=== PATIENT | female | born 1935 | race Caucasian/White ===

== ENCOUNTER 2022-12-01 21:27 | Observation (INO) | payer MEDICARE, OTHER ==
[2022-12-01] MEDS ORDERED: SODIUM CHLORIDE 0.9% 1,000 ML IV STA (22:10)
[2022-12-01] MEDS ORDERED: VANCOMYCIN IV PER PHARMACY 1 EACH MISC MISCELLANE PRN (22:13)
[2022-12-01] MEDS ORDERED: VANCOMYCIN 1,000 MG in SODIUM CHLORIDE 0.9% 250 ML IVPB STA (22:19)
--- NOTE | 2022-12-01 22:57 | ED ---
Skin/Abscess/FB HPI - General Chief complaint: Skin/Abscess/Foreign Body Stated complaint: arm infection Time Seen by Provider: 12/01/22 22:00 Source: patient, RN notes reviewed, old records reviewed Mode of arrival: ambulatory Limitations: no limitations - History of Present Illness Initial comments: This is a 87-year-old female to the emergency department for evaluation patient comes in for evaluation of right upper extremity pain and swelling. Patient is noticed cellulitis changes around the right elbow with history of lymphedema in the right upper extremity secondary to history of breast cancer. This is been up issue for the patient in the past with inpatient hospitalizations requiring IV antibiotics. Patient does have history of breast cancer leading to lymphedema of the right upper extremity MD complaint: rash, other (Cellulitis of the right elbow) -: days(s) Tetanus Up to Date: yes Location: RUE Severity: moderate Severity scale (1-10): 4 Quality: stabbing Consistency: constant Improves with: none Worsens with: none Context: none Associated symptoms: denies other symptoms - Related Data Allergies Allergy/AdvReac Type Severity Reaction Status Date / Time codeine Allergy Unknown Verified 12/01/22 21:55 meperidine [From Demerol] Allergy Unknown Verified 12/01/22 21:55 Penicillins Allergy Unknown Verified 12/01/22 21:55 Childhood sulfamethoxazole Allergy Rash/Hives Verified 12/01/22 21:55 [From Bactrim] trimethoprim [From Bactrim] Allergy Rash/Hives Verified 12/01/22 21:55 Review of Systems ROS Statement: Those systems with pertinent positive or pertinent negative responses have been documented in the HPI. ROS Other: All systems not noted in ROS Statement are negative. Past Medical History Past Medical History: Cancer, Hypertension Additional Past Medical History / Comment(s): Breast cancer History of Any Multi-Drug Resistant Organisms: None Reported Past Surgical History: Joint Replacement, Orthopedic Surgery, Pacemaker Past Psychological History: No Psychological Hx Reported Smoking Status: Never smoker Past Alcohol Use History: None Reported Past Drug Use History: None Reported General Exam Limitations: no limitations General appearance: alert, in no apparent distress Head exam: Present: atraumatic, normocephalic, normal inspection Eye exam: Present: normal appearance, PERRL, EOMI. Absent: scleral icterus, conjunctival injection, periorbital swelling ENT exam: Present: normal exam, mucous membranes moist Neck exam: Present: normal inspection. Absent: tenderness, meningismus, l ymphadenopathy Respiratory exam: Present: normal lung sounds bilaterally. Absent: respiratory distress, wheezes, rales, rhonchi, stridor Cardiovascular Exam: Present: regular rate, normal rhythm, normal heart sounds. Absent: systolic murmur, diastolic murmur, rubs, gallop, clicks GI/Abdominal exam: Present: soft, normal bowel sounds. Absent: distended, tenderness, guarding, rebound, rigid Extremities exam: Present: tenderness, normal capillary refill, other (Edema, erythema with pain is still in with right upper extremity around the elbow). Absent: pedal edema, joint swelling, calf tenderness Back exam: Present: normal inspection Neurological exam: Present: alert, oriented X3, CN II-XII intact Psychiatric exam: Present: normal affect, normal mood Skin exam: Present: warm, dry, intact, normal color. Absent: rash Course Vital Signs 12/01/22 12/01/22 21:52 23:54 Temperature 97.9 F Pulse Rate 76 73 Respiratory 18 18 Rate Blood Pressure 162/86 176/96 O2 Sat by Pulse 96 96 Oximetry - Reevaluation(s) Reevaluation #1: 12/02/22 01:01 Medical records reviewed Reevaluation #2: 12/02/22 01:01 No change in symptoms here in the ER Reevaluation #3: 12/02/22 01:01 Patient informed results questions answered Reevaluation #4: 12/02/22 01:01 Was pt. sent in by a medical professional or institution (, PA, HOLISTIC PULSER, urgent care, hospital, or care home...) When possible be specific @ -no Did you speak to anyone other than the patient for history (EMS, parent, family, police, friend...)? What history was obtained from this source @ -no Did you review nursing and triage notes (agree or disagree)? Why? @ -agree Are old charts reviewed (outside hosp., previous admission, EMS record, old EKG, old radiological studies, urgent care reports/EKG's, care home records)? Report findings @ -yes Differential Diagnosis (chest pain, altered mental status, abdominal pain women, abdominal pain men, vaginal bleeding, weakness, fever, dyspnea, syncope, headache, dizziness, GI bleed, back pain, seizure, CVA, palpatations, mental health, musculoskeletal)? @ -prior EKG interpreted by me (3pts min.). @ -yes X-rays interpreted by me (1pt min.). @ -yes CT interpreted by me (1pt min.). @ -no U/S interpreted by me (1pt. min.). @ -no What testing was considered but not performed or refused? (CT, X-rays, U/S, labs)? Why? @ -none What meds were considered but not given or refused? Why? @ -none Did you discuss the management of the patient with other professionals (professionals i.e. Dr., PA, HOLISTIC PULSER, lab, RT, psych nurse, social problems specialist, dinkey operator, teacher, chief commercial officer, hospice case manager)? Give summary @ -no Was smoking cessation discussed for >3mins.? @ -no Was critical care preformed (if so, how long)? @ -no Were there social determinants of health that impacted care today? How? (Homelessness, low income, unemployed, alcoholism, drug addiction, transportation, low edu. Level, literacy, decrease access to med. care, fci, rehab)? @ -none Was there de-escalation of care discussed even if they declined (Discuss DNR or withdrawal of care, Hospice)? DNR status @ -no What co-morbidities impacted this encounter? (DM, HTN, Smoking, COPD, CAD, Cancer, CVA, ARF, Chemo, Hep., AIDS, mental health diagnosis, sleep apnea, morbid obesity)? @ -none Was patient admitted / discharged? Hospital course, mention meds given and route, prescriptions, significant lab abnormalities, going to OR and other pertinent info. @ - Undiagnosed new problem with uncertain prognosis? @ -no Drug Therapy requiring intensive monitoring for toxicity (Heparin, Nitro, Insulin, Cardizem)? @ -no Were any procedures done? @ -no Diagnosis/symptom? @ - Acute, or Chronic, or Acute on Chronic? @ -Acute Uncomplicated (without systemic symptoms) or Complicated (systemic symptoms)? @ -Complicated Side effects of treatment? @ -no Exacerbation, Progression, or Severe Exacerbation? @ -exacerbation Poses a threat to life or bodily function? How? (Chest pain, [place], [place], pneumonia, PE, COPD, DKA, ARF, appy, cholecystitis, CVA, Diverticulitis, Homicidal, Suicidal, threat to staff... and all critical care pts) @ -yes - Consultations Consultation #1: Franklyn with jackie who agrees to admit this patient Medical Decision Making - Medical Decision Making 87 female DF for evaluation of recurrent cellulitis right upper extremity. Patient has significant swelling and pain of the right upper extremity with history of severe cellulitis this patient will be admitted for IV antibiotics - Lab Data Result diagrams: 12/01/22 23:25 12/01/22 23:25 Lab Results 12/01/22 12/01/22 12/01/22 Range/Units 23:25 23:25 23:25 WBC 7.7 (3.8-10.6) k/uL RBC 3.77 L (3.80-5.40) m/uL Hgb 11.3 L (11.4-16.0) gm/dL Hct 33.7 L (34.0-46.0) % MCV 89.4 (80.0-100.0) fL MCH 30.0 (25.0-35.0) pg MCHC 33.6 (31.0-37.0) g/dL RDW 13.7 (11.5-15.5) % Plt Count 288 (150-450) k/uL MPV 6.9 Neutrophils % 65 % Lymphocytes % 24 % Monocytes % 7 % Eosinophils % 2 % Basophils % 1 % Neutrophils # 5.0 (1.3-7.7) k/uL Lymphocytes # 1.9 (1.0-4.8) k/uL Monocytes # 0.5 (0-1.0) k/uL Eosinophils # 0.1 (0-0.7) k/uL Basophils # 0.0 (0-0.2) k/uL PT 10.4 (9.0-12.0) sec INR 1.0 (<1.2) APTT 26.9 (22.0-30.0) sec Sodium 129 L (137-145) mmol/L Potassium 4.1 (3.5-5.1) mmol/L Chloride 93 L (98-107) mmol/L Carbon Dioxide 27 (22-30) mmol/L Anion Gap 9 mmol/L BUN 26 H (7-17) mg/dL Creatinine 0.72 (0.52-1.04) mg/dL Est GFR (CKD-EPI)AfAm 87 (>60 ml/min/1.73 sqM) Est GFR (CKD-EPI)NonAf 75 (>60 ml/min/1.73 sqM) Glucose 98 (74-99) mg/dL Calcium 9.2 (8.4-10.2) mg/dL Phosphorus 4.1 (2.5-4.5) mg/dL Magnesium 1.9 (1.6-2.3) mg/dL Total Bilirubin 0.5 (0.2-1.3) mg/dL AST 26 (14-36) U/L ALT 15 (4-34) U/L Alkaline Phosphatase 94 (38-126) U/L Troponin I (0.000-0.034) ng/mL C-Reactive Protein <0.5 (<1.0) mg/dL NT-Pro-B Natriuret Pep 715 pg/mL Total Protein 6.7 (6.3-8.2) g/dL Albumin 3.6 (3.5-5.0) g/dL 12/01/22 Range/Units 23:25 WBC (3.8-10.6) k/uL RBC (3.80-5.40) m/uL Hgb (11.4-16.0) gm/dL Hct (34.0-46.0) % MCV (80.0-100.0) fL MCH (25.0-35.0) pg MCHC (31.0-37.0) g/dL RDW (11.5-15.5) % Plt Count (150-450) k/uL MPV Neutrophils % % Lymphocytes % % Monocytes % % Eosinophils % % Basophils % % Neutrophils # (1.3-7.7) k/uL Lymphocytes # (1.0-4.8) k/uL Monocytes # (0-1.0) k/uL Eosinophils # (0-0.7) k/uL Basophils # (0-0.2) k/uL PT (9.0-12.0) sec INR (<1.2) APTT (22.0-30.0) sec Sodium (137-145) mmol/L Potassium (3.5-5.1) mmol/L Chloride (98-107) mmol/L Carbon Dioxide (22-30) mmol/L Anion Gap mmol/L BUN (7-17) mg/dL Creatinine (0.52-1.04) mg/dL Est GFR (CKD-EPI)AfAm (>60 ml/min/1.73 sqM) Est GFR (CKD-EPI)NonAf (>60 ml/min/1.73 sqM) Glucose (74-99) mg/dL Calcium (8.4-10.2) mg/dL Phosphorus (2.5-4.5) mg/dL Magnesium (1.6-2.3) mg/dL Total Bilirubin (0.2-1.3) mg/dL AST (14-36) U/L ALT (4-34) U/L Alkaline Phosphatase (38-126) U/L Troponin I <0.012 (0.000-0.034) ng/mL C-Reactive Protein (<1.0) mg/dL NT-Pro-B Natriuret Pep pg/mL Total Protein (6.3-8.2) g/dL Albumin (3.5-5.0) g/dL - EKG Data -: EKG Interpreted by Me (EKG is paced 74 ND 250 QRS 90 QTC 412) - Radiology Data Radiology results: report reviewed (Chest x-ray shows pulmonary edema, ultrasound negative for DVT), image reviewed Disposition Clinical Impression: Cellulitis of right forearm Disposition: ADMITTED IP TO THIS HOSP Condition: Good Is patient prescribed a controlled substance at d/c from ED?: No Referrals: Chon Cotter MD [Primary Care Provider] - 1-2 days Time of Disposition: 01:00
[2022-12-01] MEDS ORDERED: ONDANSETRON 4 MG/2 ML VIAL IVP STA (23:47)
--- NOTE | 2022-12-01 23:51 | US ---
EXAMINATION TYPE: US venous doppler duplex UE RT DATE OF EXAM: 12/01/2022 COMPARISON: NONE CLINICAL INDICATION: Female, 87 years old with history of DVT; Lymph node resection to right axilla 2 0+ yrs ago due to Breast CA, lymphedema ever since with episodes of cellulitis, arm is starting to ge t pink in color, had dvt in leg years ago, not on thinners SIDE PERFORMED: Right Right Arm: Negative for DVT Grayscale, color doppler, spectral doppler imaging performed of the deep veins of the upper extremiti es. There is normal flow, compressibility and vascular waveforms. *unable to visualize Basilic v throughout study due to extensive swelling in medial arm* IMPRESSION: 1. No evidence for deep vein thrombosis. 2. Unable to visualize the basilic vein due to extensive soft tissue swelling.
[2022-12-01 23:57] LABS: Basophils % (A) 1 %; Eosinophils # (A) 0.1 k/uL (0-0.7); Eosinophils % (A) 2 %; HCT 33.7 % (34.0-46.0); HGB 11.3 gm/dL (11.4-16.0); Lymphocytes # (A) 1.9 k/uL (1.0-4.8); Lymphocytes % (A) 24 %; MCHC 33.6 g/dL (31.0-37.0); MCV 89.4 fL (80.0-100.0); Mean Platelet Volume 6.9; Monocytes # (A) 0.5 k/uL (0-1.0); Monocytes % (A) 7 %; Neutrophils % (A) 65 %; Platelet Count 288 k/uL (150-450); RBC 3.77 m/uL (3.80-5.40); RDW 13.7 % (11.5-15.5); WBC 7.7 k/uL (3.8-10.6)
[2022-12-01 23:58] LABS: ALT 15 U/L (4-34); AST 26 U/L (14-36); African American GFR (CKD) 87 (>60 ml/min/1.73 sqM); Albumin 3.6 g/dL (3.5-5.0); Alkaline Phosphatase 94 U/L (38-126); Anion Gap 9 mmol/L; Blood Urea Nitrogen 26 mg/dL (7-17); C Reactive Protein <0.5 mg/dL (<1.0); Calcium 9.2 mg/dL (8.4-10.2); Carbon Dioxide 27 mmol/L (22-30); Chloride 93 mmol/L (98-107); Glucose 98 mg/dL (74-99); Magnesium 1.9 mg/dL (1.6-2.3); Non-African American GFR(CKD) 75 (>60 ml/min/1.73 sqM); Phosphorus 4.1 mg/dL (2.5-4.5); Potassium 4.1 mmol/L (3.5-5.1); Sodium 129 mmol/L (137-145); Total Bilirubin 0.5 mg/dL (0.2-1.3); Total Protein 6.7 g/dL (6.3-8.2)
[2022-12-02 00:05] LABS: NT-Pro-B-Type Natriuretic Pept 715 pg/mL
--- NOTE | 2022-12-02 00:10 | XR ---
EXAMINATION TYPE: XR chest 1V portable DATE OF EXAM: 12/01/2022 11:52 PM CLINICAL INDICATION:Female, 87 years old with history of edema; COMPARISON: None TECHNIQUE: XR chest 1V portable Frontal view of the chest. FINDINGS: Lungs/Pleura: There is no evidence of pleural effusion, focal consolidation, or pneumothorax. Pulmonary vascularity: Unremarkable. Heart/mediastinum: Cardiomediastinal silhouette is enlarged and stable. Two lead cardiac conduction d evice overlying the left hemithorax with lead tips projecting over the right ventricle and right atri um. Musculoskeletal: No acute osseous pathology. Other findings: Biopsy clips project over the right breast. IMPRESSION: Cardiomegaly and mild pulmonary vascular congestion. Correlate with BNP for congestive heart failure.
[2022-12-02 00:20] LABS: Partial Thromboplastin Time 26.9 sec (22.0-30.0); Prothrombin Time 10.4 sec (9.0-12.0)
[2022-12-02] MEDS ORDERED: NALOXONE 0.4 MG/ML 1 ML VIAL IV PRN (00:56)
[2022-12-02] MEDS ORDERED: MORPHINE SULFATE 4 MG/ML SYRINGE IV PRN (00:56)
[2022-12-02] MEDS: SODIUM CHLORIDE 0.9% 1,000 ML IV SCH (01:06)
[2022-12-02] MEDS ORDERED: ALPRAZolam 0.25 MG TAB PO PRN (04:59)
--- NOTE | 2022-12-02 04:59 | P.HPIM ---
History of Present Illness H&P Date: 12/02/22 Patient is a 87-year-old female with a PMH of hypertension, hypothyroidism, hyperlipidemia, breast cancer status post lymph node resection with chronic right upper extremity lymphedema who presents to the emergency room with complaints of right arm swelling and redness. Patient reports that over the past few days, she has noticed a gradually worsening redness and swelling from her right elbow extending to her right shoulder. She reports a prior history of multiple bouts of cellulitis with resulting septic shock. She reports having taken multiple courses of IV antibiotics and follows with Dr. Cotter. Reports minimal pain at the site at the time of interview but reports that she is concerned that it may worsen. Denied experiencing fever, chills, chest pain, shortness of breath, nausea, vomiting. In the emergency room, right upper extremity venous Doppler was negative for DVT. Chest x-ray revealed cardiomegaly and mild pulmonary venous congestion. EKG revealed an a paced rhythm at 74 bpm as reviewed by me with T-wave inversion in lead 3 and T-wave flattening in lead aVF. Laboratory evaluation was remarkable for hyponatremia of 129 with troponin less than 0.012 and proBNP 715. ED documentation reviewed and case discussed with ED provider. Review of systems: Pertinent positives and negatives as discussed in HPI, a complete review of systems was performed and all other systems are negative. Physical examination: Vital signs reviewed General: non toxic, no distress, appears at stated age, normal weight Derm: Right upper extremity swelling with medial aspect erythema, warm Head: atraumatic, normocephalic, symmetric Eyes: EOMI, no lid lag, anicteric sclera, pupils equal round reactive to light ENT: Nose and ears atraumatic Neck: No cervical lymphadenopathy, trachea midline, supple Mouth: no lip lesion, mucus membranes moist Cardiovascular: S1S2 reg, no murmur, positive dorsalis pedis pulse bilateral, no edema Lungs: CTA bilateral, no rhonchi, no rales, no accessory muscle use Abdominal: soft, nontender to palpation, no guarding Ext: muscle strength 5 out of 5 in all 4 extremities grossly, no gross muscle atrophy, no contractures, Neuro: CN II-XI grossly intact, no gross focal neuro deficits Psych: Alert, oriented, appropriate affect Assessment: Right upper extremity cellulitis Hyponatremia, hypochloremic and euvolemic Chronic conditions: Hypertension, hypothyroidism, hyperlipidemia Imaging: In the emergency room, right upper extremity venous Doppler was negative for DVT. Chest x-ray revealed cardiomegaly and mild pulmonary venous congestion. EKG revealed an a paced rhythm at 74 bpm as reviewed by me with T-wave inversion in lead 3 and T-wave flattening in lead aVF. Data Review: Laboratory evaluation was remarkable for hyponatremia of 129 with troponin less than 0.012 and proBNP 715. Plan: Continue with IV antibiotics vancomycin and ceftriaxone Infectious disease consulted Follow-up blood cultures Cellulitis affected area marked Continue with IV fluids normal saline 75 mL/hr DVT prophylaxis: Lovenox Subq The patient is admitted with an anticipated less than 2 midnight stay for evaluation of cellulitis CODE STATUS: Full Code Discussed with: Patient Anticipated discharge place: Home Past Medical History Past Medical History: Cancer, Hypertension Additional Past Medical History / Comment(s): Breast cancer, dystonia - left arm, lymphedema - right arm History of Any Multi-Drug Resistant Organisms: None Reported Past Surgical History: Joint Replacement, Orthopedic Surgery, Pacemaker Additional Past Surgical History / Comment(s): back surgery Past Anesthesia/Blood Transfusion Reactions: No Reported Reaction Type of Cardiac Device: Unknown Device Placement Date:: 2017 Past Psychological History: Anxiety Smoking Status: Never smoker Past Alcohol Use History: None Reported Past Drug Use History: None Reported Medications and Allergies Home Medications Medication Instructions Recorded Confirmed Type ALPRAZolam [Xanax] 0.25 mg PO BID PRN 12/02/22 12/02/22 History Ascorbic Acid [Vitamin C] 500 mg PO DAILY 12/02/22 12/02/22 History Aspirin 81 mg PO DAILY 12/02/22 12/02/22 History Atorvastatin [Lipitor] 20 mg PO HS 12/02/22 12/02/22 History Baclofen 10 mg PO BID 12/02/22 12/02/22 History Cephalexin [Keflex] 250 mg PO AC-LUNCH 12/02/22 12/02/22 History Levothyroxine Sodium [Levoxyl] 88 mcg PO DAILY 12/02/22 12/02/22 History Losartan Potassium [Cozaar] 100 mg PO HS 12/02/22 12/02/22 History Magnesium 250 mg PO DAILY 12/02/22 12/02/22 History Nitroglycerin Sl Tabs [Nitrostat] 0.4 mg SUBLINGUAL Q5M PRN 12/02/22 12/02/22 History Omeprazole 20 mg PO DAILY 12/02/22 12/02/22 History Ondansetron [Zofran] 4 mg PO Q6HR PRN 12/02/22 12/02/22 History Sertraline [Zoloft] 25 mg PO HS 12/02/22 12/02/22 History Sucralfate [Sucralfate Oral Susp] 1 gm PO BID 12/02/22 12/02/22 History atenoloL 100 mg PO DAILY 12/02/22 12/02/22 History atenoloL [Tenormin] 50 mg PO HS 12/02/22 12/02/22 History Allergies Allergy/AdvReac Type Severity Reaction Status Date / Time codeine Allergy Unknown Verified 12/01/22 21:55 meperidine [From Demerol] Allergy Unknown Verified 12/01/22 21:55 Penicillins Allergy Unknown Verified 12/01/22 21:55 Childhood sulfamethoxazole Allergy Rash/Hives Verified 12/01/22 21:55 [From Bactrim] trimethoprim [From Bactrim] Allergy Rash/Hives Verified 12/01/22 21:55 Physical Exam Vitals: Vital Signs Temp Pulse Pulse Resp BP BP Pulse Ox 12/02/22 03:15 162/78 12/02/22 03:00 18 12/02/22 02:20 97.5 F L 71 18 192/96 96 12/02/22 01:00 70 18 120/80 98 12/01/22 23:54 73 18 176/96 96 12/01/22 21:52 97.9 F 76 18 162/86 96 Intake and Output 12/01/22 12/01/22 12/02/22 14:59 22:59 06:59 Other: Voiding Method Bedside Commode Diaper Weight 53.524 kg 53.524 kg Results CBC & Chem 7: 12/01/22 23:25 12/01/22 23:25 Labs: Abnormal Lab Results - Last 24 Hours (Table) 12/01/22 12/01/22 Range/Units 23:25 23:25 RBC 3.77 L (3.80-5.40) m/uL Hgb 11.3 L (11.4-16.0) gm/dL Hct 33.7 L (34.0-46.0) % Sodium 129 L (137-145) mmol/L Chloride 93 L (98-107) mmol/L BUN 26 H (7-17) mg/dL Thrombosis Risk Factor Assmnt - Choose All That Apply Any of the Below Risk Factors Present?: Yes Other Risk Factors: Yes Each Risk Factor Represents 2 Points: Malignancy Each Risk Factor Represents 3 Points: Age 75 years or older Other congenital or acquired thrombophilia - If yes, enter type in comment: No Thrombosis Risk Factor Assessment Total Risk Factor Score: 5 Thrombosis Risk Factor Assessment Level: High Risk
[2022-12-02] MEDS: LEVOTHYROXINE 88 MCG TAB PO SCH (06:07)
[2022-12-02] MEDS: BACLOFEN 10 MG TAB PO SCH ×2 (08:07→21:20)
[2022-12-02] MEDS: ASPIRIN 81 MG PO SCH (08:07)
[2022-12-02] MEDS: atenoloL 50 MG TAB PO SCH (08:07)
[2022-12-02] MEDS: ENOXAPARIN 40 MG/0.4 ML SYRINGE SQ SCH (08:08)
[2022-12-02 08:27] LABS: African American GFR (CKD) >90 (>60 ml/min/1.73 sqM); Anion Gap 9 mmol/L; Blood Urea Nitrogen 18 mg/dL (7-17); Calcium 8.8 mg/dL (8.4-10.2); Carbon Dioxide 25 mmol/L (22-30); Chloride 98 mmol/L (98-107); Glucose 90 mg/dL (74-99); Non-African American GFR(CKD) 83 (>60 ml/min/1.73 sqM); Potassium 3.9 mmol/L (3.5-5.1); Sodium 132 mmol/L (137-145)
--- NOTE | 2022-12-02 14:42 | P.PN ---
Subjective Progress Note Date: 12/02/22 (delayed charting seen at 1115) Patient is a 87-year-old female with chronic lymphedema of the right upper extremity secondary to surgery for breast cancer, hypertension, hypothyroidism, and dyslipidemia who presented to the emergency department with right upper extremity redness and swelling. Patient is on chronic suppressive therapy with Dr. Cotter in the form of Keflex daily but has been having some GI side effects. In the emergency department she underwent an extensive evaluation. She was hypertensive on arrival with a blood pressure 162/86. Laboratory analysis was remarkable for hemoglobin 11.3, sodium 129, BUN 26. She underwent a right upper extremity venous Doppler which showed no evidence of DVT but was unable to visualize the basilic vein secondary to soft tissue swelling. She underwent a chest x-ray showed showed mild pulmonary vascular congestion and cardiomegaly with concerns for congestive heart failure. Patient seen and examined at bedside with family present. She reports that her redness is greatly reduced from yesterday. She reports that she has significant pain when she tries a lymphedema wrap in her left upper extremity, but she is willing to try lose Torsten wrap. She states that she's been having some difficulty tolerating her oral Keflex at her GI doctor asked her to stop this medication, she has not done so he was waiting to speak with Dr. Cotter. Vital signs reviewed General: nontoxic, no distress, appears at stated age Cardiovascular: S1S2 reg, no murmur, positive posterior tibial pulse bilateral, Lungs: CTA bilateral, no rhonchi, no rales , no accessory muscle use Abdominal: soft, nontender to palpation, no guarding, no appreciable organomegaly Ext: no gross muscle atrophy, no edema b/l lower extremities, no contractures, right upper extremity with significant edema, mild erythema distal to the Right elbow Neuro: CN II-XI grossly intact, no focal neuro deficits Psych: Alert, oriented, appropriate affect Assessment/Plan: Right upper extremity cellulitis, failed outpatient treatment with Keflex Chronic lymphedema right upper extremity -Infectious disease recommendations: Discontinue vancomycin and Rocephin, start Cefazolin 2 g IV piggyback every 8 hours - Torsten wrap right arm to help with lymphedema - Await blood cultures Hyponatremia, hypochloremic, appears dry -Improved with IV fluids. We'll discontinue -Repeat sodium in a.m. Hypertension HLD -Atenolol 100 mg in the morning and 50 mg at night -Lipitor 20 mg every 48 hours -Cozaar 100 mg at night -Follow blood pressures Imaging: None new Data Review: Labs from today reviewed and are basic metabolic profile shows sodium of 132 (up from 129), BUN of 18. CRP was negative at less than 0.5 DVT prophylaxis: Lovenox Anticipated discharge date: Pending Clinical Course Anticipated discharge place: Pending Clinical Course This dictation was prepared using [employer] voice recognition software. Though every attempt is made to correct errors during dictation some may still exist. Objective - Vital Signs Vital signs: Vital Signs Temp 97.4 F L 12/02/22 11:53 Pulse 70 12/02/22 11:53 Resp 18 12/02/22 11:53 BP 163/76 12/02/22 11:53 Pulse Ox 96 12/02/22 11:53 FiO2 Intake & Output 12/01/22 12/02/22 12/02/22 18:59 06:59 18:59 Intake Total 930 Balance 930 Weight 53.524 kg Intake: Intake, IV Titration 330 Amount Sodium Chloride 0.9% 1, 80 000 ml @ 20 mls/hr IV . Q24H SHIRA Rx#:[id number] Vancomycin 1,000 mg In 250 Sodium Chloride 0.9% 250 ml @ 125 mls/hr IVPB Q24H SHIRA Rx#:[id number] Oral 600 Other: Voiding Method Bedside Commode Bedside Commode Diaper Diaper # Voids 1 1 - Labs CBC & Chem 7: 12/01/22 23:25 12/02/22 07:55 Labs: Abnormal Lab Results - Last 24 Hours (Table) 12/01/22 12/01/22 12/02/22 Range/Units 23:25 23:25 07:55 RBC 3.77 L (3.80-5.40) m/uL Hgb 11.3 L (11.4-16.0) gm/dL Hct 33.7 L (34.0-46.0) % Sodium 129 L 132 L (137-145) mmol/L Chloride 93 L (98-107) mmol/L BUN 26 H 18 H (7-17) mg/dL
[2022-12-02] MEDS: SUCRALFATE 1 GM TAB PO SCH (16:59)
[2022-12-02] MEDS ORDERED: SERTRALINE 25 MG TAB PO SCH (21:00)
[2022-12-02] MEDS ORDERED: ATORVASTATIN 20 MG TAB PO SCH (21:00)
[2022-12-02] MEDS ORDERED: VANCOMYCIN 1,000 MG in SODIUM CHLORIDE 0.9% 250 ML IVPB SCH (21:00)
[2022-12-02] MEDS ORDERED: atenoloL 50 MG TAB PO SCH (21:00)
[2022-12-02] MEDS ORDERED: LOSARTAN 50 MG TAB PO SCH (21:00)
--- NOTE | 2022-12-02 23:29 | P.CONS ---
History of Present Illness - Reason for Consult Consult date: 12/02/22 Cellulitis Requesting physician: Giovani Wellington - Chief Complaint Right upper extremity swelling and redness x one day - History of Present Illness Patient is a 87-year-old female with a past medical history Nupercaine for right-sided breast cancer in this patient who is status post radical mastectomy patient did have a history of recurrent right upper extremity cellulitis patient presenting to the ER last night concerning for right upper extremity pain and swelling and also noticed to having some redness with concern for cellulitis patient presented to the hospital patient denies any history of any trauma did have diffuse swelling and redness mostly to the medial aspect of the right upper arm patient did have mild aching pain due to the retained currently with open wound or any drainage patient on presentation to the hospital was afebrile and no fever has been recorded subsequently patient did have a normal white count kidney function was normal liver enzymes are normal CRP is normal patient did have a venous Doppler study no evidence of DVT chest x-ray cardiomegaly with mild pulmonary vascular congestion patient was started on vancomycin infectious he was consulted for further management of antibiotic therapy Review of Systems Positive point and negatives has been mentioned in the HPI, complete review of systems was performed and all other systems are negative Past Medical History Past Medical History: Cancer, Hypertension Additional Past Medical History / Comment(s): Breast cancer, dystonia - left arm, lymphedema - right arm History of Any Multi-Drug Resistant Organisms: None Reported Past Surgical History: Joint Replacement, Orthopedic Surgery, Pacemaker Additional Past Surgical History / Comment(s): back surgery Past Anesthesia/Blood Transfusion Reactions: No Reported Reaction Type of Cardiac Device: Unknown Device Placement Date:: 2017 Past Psychological History: Anxiety Smoking Status: Never smoker Past Alcohol Use History: None Reported Past Drug Use History: None Reported Medications and Allergies Home Medications Medication Instructions Recorded Confirmed Type ALPRAZolam [Xanax] 0.25 mg PO BID PRN 12/02/22 12/02/22 History Ascorbic Acid [Vitamin C] 500 mg PO DAILY 12/02/22 12/02/22 History Aspirin 81 mg PO DAILY@1200 12/02/22 12/02/22 History Atorvastatin [Lipitor] 20 mg PO Q48H 12/02/22 12/02/22 History Baclofen 10 mg PO BID 12/02/22 12/02/22 History Calcium Citrate/Vitamin D3 1 tab PO TID 12/02/22 12/02/22 History [Calcium Cit 315-Vit D3 6.25 Mcg (250 Iu)] Ketoconazole 2% Cream [Nizoral 2%] 1 applic TOPICAL DAILY 12/02/22 12/02/22 History Levothyroxine Sodium [Levoxyl] 88 mcg PO DAILY 12/02/22 12/02/22 History Losartan Potassium [Cozaar] 100 mg PO HS 12/02/22 12/02/22 History Magnesium 125 mg PO DAILY 12/02/22 12/02/22 History Magnesium Hydroxide [Milk of 1,200 mg PO DAILY PRN 12/02/22 12/02/22 History Magnesia] Nitroglycerin Sl Tabs [Nitrostat] 0.4 mg SUBLINGUAL Q5M PRN 12/02/22 12/02/22 History Omeprazole 20 mg PO BID 12/02/22 12/02/22 History Ondansetron [Zofran] 4 mg PO Q6HR PRN 12/02/22 12/02/22 History Sertraline [Zoloft] 25 mg PO HS 12/02/22 12/02/22 History Sucralfate [Sucralfate Oral Susp] 1 gm PO BID 12/02/22 12/02/22 History atenoloL 100 mg PO DAILY 12/02/22 12/02/22 History atenoloL [Tenormin] 50 mg PO HS 12/02/22 12/02/22 History Cephalexin [Keflex] 500 mg PO Q8HR 7 Days #21 cap 12/03/22 Rx Allergies Allergy/AdvReac Type Severity Reaction Status Date / Time codeine Allergy Unknown Verified 12/02/22 11:56 meperidine [From Demerol] Allergy Unknown Verified 12/02/22 11:56 Penicillins Allergy Anaphylaxis, Verified 12/02/22 11:56 swelling sulfamethoxazole Allergy Nausea & Verified 12/02/22 11:56 [From Bactrim] Vomiting trimethoprim [From Bactrim] Allergy Nausea & Verified 12/02/22 11:56 Vomiting Physical Exam Vitals: Vital Signs Temp Pulse Pulse Resp BP BP Pulse Ox 12/02/22 08:55 64 18 12/02/22 07:46 98.1 F 64 18 182/81 97 12/02/22 03:15 162/78 12/02/22 03:00 18 12/02/22 02:20 97.5 F L 71 18 192/96 96 12/02/22 01:00 70 18 120/80 98 12/01/22 23:54 73 18 176/96 96 12/01/22 21:52 97.9 F 76 18 162/86 96 Intake and Output 12/01/22 12/02/22 12/02/22 22:59 06:59 14:59 Intake Total 930 Balance 930 Intake: Intake, IV Titration 330 Amount Sodium Chloride 0.9% 1, 80 000 ml @ 20 mls/hr IV . Q24H SHIRA Rx#:[id number] Vancomycin 1,000 mg In 250 Sodium Chloride 0.9% 250 ml @ 125 mls/hr IVPB Q24H SHIRA Rx#:[id number] Oral 600 Other: Voiding Method Bedside Commode Bedside Commode Diaper Diaper # Voids 1 Weight 53.524 kg 53.524 kg GENERAL DESCRIPTION: An elderly female lying in bed, no distress. No tachypnea or accessory muscle of respiration use. HEENT: Shows Pallor , no scleral icterus. Oral mucous membrane is dry. NECK: Trachea central, no thyromegaly. LUNGS: Unlabored breathing. Clear to auscultation anteriorly. No wheeze or crackle. HEART: S1, S2, regular rate and rhythm. No loud murmur ABDOMEN: Soft, no tenderness , guarding or rigidity, no organomegaly EXTREMITIES: Right upper extremity did have chronic swelling in the area of redness seemed to have decreased from a line that was placed in the ER yesterday SKIN: No rash, no masses palpable. NEUROLOGICAL: The patient is awake, alert, oriented x3, mood and affect normal. Results CBC & Chem 7: 12/03/22 06:51 12/03/22 06:51 Labs: Abnormal Lab Results - Last 24 Hours (Table) 12/01/22 12/01/22 12/02/22 Range/Units 23:25 23:25 07:55 RBC 3.77 L (3.80-5.40) m/uL Hgb 11.3 L (11.4-16.0) gm/dL Hct 33.7 L (34.0-46.0) % Sodium 129 L 132 L (137-145) mmol/L Chloride 93 L (98-107) mmol/L BUN 26 H 18 H (7-17) mg/dL Assessment and Plan (1) Cellulitis of right forearm Status: Acute Code(s): L03.113 - CELLULITIS OF RIGHT UPPER LIMB SNOMED Code(s): 07704499800382582 (2) Allergy to multiple antibiotics Status: Acute Code(s): Z88.1 - ALLERGY STATUS TO OTHER ANTIBIOTIC AGENTS SNOMED Code(s): 752697635 Plan: 1patient presented to hospital with increasing swelling redness to the right upper extremity in this patient who did have history of recurrent cellulitis ris k factor being lymphedema to the right upper extremity, patient did have a swelling to the right upper extremity however the redness seem to have resolved at the time of evaluation patient not running any fever and white count is normal clinically doubt MRSA infection 2-discontinue vancomycin 3-we will start the patient on cefazolin 2 g every 8 hours 4-compression dressing to the right upper extremity keep the swelling down If overall improvement may be able to go home on oral Keflex and close o utpatient follow-up We will follow on clinical condition and cultures to further adjust medication i f needed Thank you for this consultation we will follow the patient along with you Dictation was produced using [employer] dictation software. please excuse any grammatical, word or spelling errors. Time with Patient: Greater than 30
[2022-12-03] MEDS: SODIUM CHLORIDE 0.9% 1,000 ML IV SCH
[2022-12-03] MEDS: ONDANSETRON 4 MG/2 ML VIAL IVP PRN ×2 (01:03→12:13)
[2022-12-03] MEDS ORDERED: ACETAMINOPHEN TAB 325 MG TAB PO PRN (01:30)
[2022-12-03] MEDS: LEVOTHYROXINE 88 MCG TAB PO SCH (06:08)
[2022-12-03 08:02] VITALS: RESP 17
[2022-12-03] MEDS: ASPIRIN 81 MG PO SCH (08:08)
[2022-12-03] MEDS: SUCRALFATE 1 GM TAB PO SCH (08:08)
[2022-12-03] MEDS: atenoloL 50 MG TAB PO SCH (08:09)
[2022-12-03] MEDS: ENOXAPARIN 40 MG/0.4 ML SYRINGE SQ SCH (08:09)
[2022-12-03] MEDS: BACLOFEN 10 MG TAB PO SCH (08:09)
[2022-12-03 11:20] LABS: Basophils # (A) 0.04 X 10*3/uL (0.00-0.10); Basophils % (A) 0.5 %; Eosinophils # (A) 0.14 X 10*3/uL (0.04-0.35); Eosinophils % (A) 1.7 %; HCT 32.5 % (37.2-46.3); HGB 10.5 d/dL (12.0-15.0); Lymphocytes # (A) 1.72 X 10*3/uL (0.90-5.00); Lymphocytes % (A) 21.1 %; MCH 28.8 pg (27.0-32.0); MCHC 32.3 d/dL (32.0-37.0); MCV 89.3 FL (80.0-97.0); Mean Platelet Volume 8.8 FL (9.5-12.2); Monocytes # (A) 0.95 X 10*3/uL (0.20-1.00); Monocytes % (A) 11.6 %; NRBC Per 100 WBC 0 X 10*3/uL (0.00-0.01); Neutrophils # (A) 5.28 X 10*3/uL (1.80-7.70); Neutrophils % (A) 64.7 %; Platelet Count 249 X 10*3/uL (140-440); RBC 3.64 X 10*6/uL (4.10-5.20); RDW 14.2 % (11.5-14.5); WBC 8.16 X 10*3/uL (4.50-10.00)
[2022-12-03 12:03] LABS: ALT 10 U/L (8-44); AST 21 U/L (13-35); Albumin 3.4 d/dL (3.8-4.9); Albumin/Globulin Ratio 1.42 Ratio (1.60-3.17); Alkaline Phosphatase 64 U/L (41-126); BUN/Creat Ratio 18.71 Ratio (12.00-20.00); Blood Urea Nitrogen 13.1 mg/dL (9.0-27.0); Calcium 8.8 mg/dL (8.7-10.3); Carbon Dioxide 23.5 mmol/L (21.6-31.8); Chloride 97 mmol/L (96-109); Globulin 2.4 d/dL (1.6-3.3); Glucose 89 mg/dL (70-110); Magnesium 1.9 mg/dL (1.5-2.4); Phosphorus 3.8 mg/dL (2.4-5.1); Potassium 4.2 mmol/L (3.5-5.5); Sodium 133 mmol/L (135-145); Total Bilirubin 0.4 mg/dL (0.3-1.2); Total Protein 5.8 d/dL (6.2-8.2)
[2022-12-03 12:36] VITALS: BP 162/81; PULSE 98; TEMP 98
--- NOTE | 2022-12-03 14:05 | P.DS ---
Providers Date of admission: 12/02/22 00:56 Expected date of discharge: 12/03/22 Attending physician: Alethea Solomon MD Consults: 12/02/22 00:56 Consult Physician Routine Consulting Provider: Chon Cotter Consult Reason/Comments: cellulitis Do you want consulting provider notified?: Yes Primary care physician: Chon Cotter Hospital Course: Discharge Diagnosis: Right upper extremity cellulitis, failed outpatient treatment with Keflex Chronic lymphedema right upper extremity Hyponatremia, hypochloremic, appears dry Hypertension HLD Hospital Course: Patient is a 87-year-old female with chronic lymphedema of the right upper extremity secondary to surgery for breast cancer, hypertension, hypothyroidism, and dyslipidemia who presented to the emergency department with right upper extremity redness and swelling. Patient is on chronic suppressive therapy with Dr. Cotter in the form of Keflex daily but has been having some GI side effects. In the emergency department she underwent an extensive evaluation. She was hypertensive on arrival with a blood pressure 162/86. Laboratory analysis was remarkable for hemoglobin 11.3, sodium 129, BUN 26. She underwent a right upper extremity venous Doppler which showed no evidence of DVT but was unable to visualize the basilic vein secondary to soft tissue swelling. She underwent a chest x-ray showed showed mild pulmonary vascular congestion and cardiomegally with concerns for congestive heart failure. She was started on antibiotics. Infectious disease was consulted and she was transitioned to subcu insulin. She continued to well. She was determined stable for discharge and she was afebrile and her white blood cell count was normal. Follow-up: Complete Keflex 500 mg every 8 hours for the next 7 days, follow up Dr. Cotter in 1 week, continue use lymphedema wrap. Patient seen and examined at bedside. Feeling better. Her arm is better than yesterday. Vital signs reviewed and stable. General: nontoxic, no distress, appears at stated age Cardiovascular: S1S2 reg, no murmur, positive posterior tibial pulse bilateral, Lungs: CTA bilateral, no rhonchi, no rales , no accessory muscle use Abdominal: soft, nontender to palpation, no guarding, no appreciable organomegaly Ext: no gross muscle atrophy, no edema b/l lower extremities, no contractures, Right upper extremity edema without erythema or warmth Neuro: CN II-XI grossly intact, no focal neuro deficits Psych: Alert, oriented, appropriate affect A total of 32 minutes of time were spent preparing this complex discharge summary. Patient was discharged on 12/03/22. This dictation was prepared using [employer] voice recognition software. Though every attempt is made to correct errors during dictation some may still exist. Patient Condition at Discharge: Good Plan - Discharge Summary Discharge Rx Participant: No New Discharge Prescriptions: New Cephalexin [Keflex] 500 mg PO Q8HR 7 Days #21 cap Continue atenoloL [Tenormin] 50 mg PO HS atenoloL 100 mg PO DAILY Atorvastatin [Lipitor] 20 mg PO Q48H Baclofen 10 mg PO BID Ondansetron [Zofran] 4 mg PO Q6HR PRN PRN Reason: Nausea And Vomiting Nitroglycerin Sl Tabs [Nitrostat] 0.4 mg SUBLINGUAL Q5M PRN PRN Reason: Chest Pain Ketoconazole 2% Cream [Nizoral 2%] 1 applic TOPICAL DAILY Calcium Citrate/Vitamin D3 [Calcium Cit 315-Vit D3 6.25 Mcg (250 Iu)] 1 tab PO TID Aspirin 81 mg PO DAILY@1200 Omeprazole 20 mg PO BID Levothyroxine Sodium [Levoxyl] 88 mcg PO DAILY Ascorbic Acid [Vitamin C] 500 mg PO DAILY ALPRAZolam [Xanax] 0.25 mg PO BID PRN PRN Reason: Anxiety Sucralfate [Sucralfate Oral Susp] 1 gm PO BID Magnesium 125 mg PO DAILY Losartan Potassium [Cozaar] 100 mg PO HS Sertraline [Zoloft] 25 mg PO HS Magnesium Hydroxide [Milk of Magnesia] 1,200 mg PO DAILY PRN PRN Reason: Constipation Discharge Medication List ALPRAZolam [Xanax] 0.25 mg PO BID PRN 12/02/22 [History] Ascorbic Acid [Vitamin C] 500 mg PO DAILY 12/02/22 [History] Aspirin 81 mg PO DAILY@1200 12/02/22 [History] Atorvastatin [Lipitor] 20 mg PO Q48H 12/02/22 [History] Baclofen 10 mg PO BID 12/02/22 [History] Calcium Citrate/Vitamin D3 [Calcium Cit 315-Vit D3 6.25 Mcg (250 Iu)] 1 tab PO TID 12/02/22 [History] Ketoconazole 2% Cream [Nizoral 2%] 1 applic TOPICAL DAILY 12/02/22 [History] Levothyroxine Sodium [Levoxyl] 88 mcg PO DAILY 12/02/22 [History] Losartan Potassium [Cozaar] 100 mg PO HS 12/02/22 [History] Magnesium 125 mg PO DAILY 12/02/22 [History] Magnesium Hydroxide [Milk of Magnesia] 1,200 mg PO DAILY PRN 12/02/22 [History] Nitroglycerin Sl Tabs [Nitrostat] 0.4 mg SUBLINGUAL Q5M PRN 12/02/22 [History] Omeprazole 20 mg PO BID 12/02/22 [History] Ondansetron [Zofran] 4 mg PO Q6HR PRN 12/02/22 [History] Sertraline [Zoloft] 25 mg PO HS 12/02/22 [History] Sucralfate [Sucralfate Oral Susp] 1 gm PO BID 12/02/22 [History] atenoloL 100 mg PO DAILY 12/02/22 [History] atenoloL [Tenormin] 50 mg PO HS 12/02/22 [History] Cephalexin [Keflex] 500 mg PO Q8HR 7 Days #21 cap 12/03/22 [Rx] Follow up Appointment(s)/Referral(s): Chon Cotter MD [Primary Care Provider] - 1-2 days Patient Instructions/Handouts: Cephalexin (By mouth) Activity/Diet/Wound Care/Special Instructions: Activity: As tolerated Diet: Regular Special Instructions: Continue to use your lymphedema wrap Discharge Disposition: HOME SELF-CARE
--- NOTE | 2022-12-04 12:17 | P.PN ---
Subjective Progress Note Date: 12/03/22 Principal diagnosis: Right upper extremity cellulitis Patient is a 87-year-old female with a past medical history Nupercaine for right-sided breast cancer in this patient who is status post radical mastectomy patient did have a history of recurrent right upper extremity cellulitis patient presenting to the ER last night concerning for right upper extremity pain and swelling and also noticed to having some redness with concern for cellulitis , patient did have a Doppler that was negative for DVT. On today's evaluation that is 12/03/2022, the patient denies any fever or any chills, the patient is breathing comfortably on room air and no need for supplemental oxygen, patient denies abdominal pain and no nausea/vomiting /diarrhea,the patient denies chest pain or cough, patient right upper extremity redness has improved. Patient did have white can of 8.16, creatinine 0.7, blood culture so far negative Objective - Vital Signs Vital signs: Vital Signs Temp 98.1 F 12/03/22 07:12 Pulse 69 12/03/22 07:12 Resp 17 12/03/22 07:12 BP 177/91 12/03/22 07:12 Pulse Ox 97 12/03/22 07:12 FiO2 Intake & Output 12/02/22 12/03/22 12/03/22 18:59 06:59 18:59 Intake Total 360 590 Balance 360 590 Intake: Intake, IV Titration 290 Amount Sodium Chloride 0.9% 1, 240 000 ml @ 20 mls/hr IV . Q24H SHIRA Rx#:[id number] ceFAZolin 2 gm In Sodium 50 Chloride 0.9% 50 ml @ 100 mls/hr IVPB Q8HR SHIRA Rx# :[id number] Oral 360 300 Other: Voiding Method Bedside Commode Bedside Commode Diaper Diaper # Voids 5 2 1 - Exam GENERAL DESCRIPTION: An elderly female lying in bed in no distress RESPIRATORY SYSTEM: Unlabored breathing , decreased breath sounds at bases HEART: S1 S2 regular rate and rhythm , ABDOMEN: Soft , no tenderness EXTREMITIES: Right upper extremity has swelling redness has improved - Labs CBC & Chem 7: 12/03/22 06:51 12/03/22 06:51 Assessment and Plan (1) Allergy to multiple antibiotics Status: Acute Code(s): Z88.1 - ALLERGY STATUS TO OTHER ANTIBIOTIC AGENTS SNOMED Code(s): 275937624 (2) Cellulitis of right forearm Status: Acute Code(s): L03.113 - CELLULITIS OF RIGHT UPPER LIMB SNOMED Cod e(s): 27222593471026551 Plan: 1patient presented to hospital with increasing swelling redness to the right upper extremity in this patient who did have history of recurrent cellulitis risk factor being lymphedema to the right upper extremity, patient did have a swelling to the right upper extremity however the redness seem to have resolved at the time of evaluation patient not running any fever and white count is normal clinically doubt MRSA infection 2-Patient seemed to have her clinical improvement on cefazolin 2 g every 8 hours, with a plan to finish therapy with oral Keflex prescription was sent to the pharmacy 3-patient advised compression dressing to the right upper extremity keep the swelling down and prevent recurrent cellulitis Dictation was produced using [employer] dictation software. please excuse any grammatical, word or spelling errors. Time with Patient: Less than 30
== END 2022-12-03 15:14 | disposition home or self-care (01) ==
LOC: EC 21:27 → 5NMEDONC 12-02 00:56
PROVIDERS: ADMIT Internal Medicine; ATTEND Internal Medicine
DX: L03.113 Cellulitis of right upper limb (principal); R94.31 Abnormal electrocardiogram [ECG] [EKG]; Z79.82 Long term (current) use of aspirin; F41.9 Anxiety disorder, unspecified; E87.1 Hypo-osmolality and hyponatremia; E78.5 Hyperlipidemia, unspecified; E03.9 Hypothyroidism, unspecified; E87.8 Other disorders of electrolyte and fluid balance, not elsewhere classified; C50.819 Malignant neoplasm of overlapping sites of unspecified female breast; I10 Essential (primary) hypertension; Z79.899 Other long term (current) drug therapy; Z79.890 Hormone replacement therapy
CPT/HCPCS: 96376; 96372 ×2; 96361 ×2; 96365; 96375; 99285; 36415; 94760 ×2; 93005; 83880; 80053 ×2; 80048; 83735 ×2; 84100 ×2; 84484; 85025 ×2; 85610; 85730; 86140; 87040; 71045; 93971; G0378 ×2; J3370; J0690 ×2; J2405 ×2; J0696; J1650 ×2

== ENCOUNTER 2022-12-11 17:28 | Inpatient (IN) | payer MEDICARE ==
[2022-12-11] MEDS ORDERED: SODIUM CHLORIDE 0.9% 500 ML 500 ML IV ONE (20:38)
[2022-12-11 21:29] LABS: Basophils % (A) 0 %; Eosinophils # (A) 0.1 k/uL (0-0.7); Eosinophils % (A) 0 %; HCT 35.8 % (34.0-46.0); HGB 11.9 gm/dL (11.4-16.0); Lymphocytes # (A) 0.8 k/uL (1.0-4.8); Lymphocytes % (A) 4 %; MCH 29.7 pg (25.0-35.0); MCHC 33.3 g/dL (31.0-37.0); MCV 89.4 fL (80.0-100.0); Mean Platelet Volume 6.8; Monocytes # (A) 0.4 k/uL (0-1.0); Monocytes % (A) 2 %; Neutrophils # (A) 19.4 k/uL (1.3-7.7); Neutrophils % (A) 93 %; Platelet Count 330 k/uL (150-450); RBC 4.01 m/uL (3.80-5.40); RDW 13.7 % (11.5-15.5); WBC 20.8 k/uL (3.8-10.6)
--- NOTE | 2022-12-11 21:46 | ED ---
General Adult HPI - General Chief complaint: Extremity Injury, Upper Stated complaint: right arm pain Time Seen by Provider: 12/11/22 20:26 Source: patient Mode of arrival: wheelchair Limitations: no limitations - History of Present Illness Initial comments: 87-year-old female presenting with chief complaint of right arm and chest redness and swelling. Patient has history of breast cancer and radiation and lymph node removal, she has had recurrent cellulitis to this area on multiple occasions it was recently discharged a week ago from our facility after treatment. She completed her course of Keflex a few days ago. states that around 4:45 PM today he noticed increasing redness to the forearm. There is redness to her chest and shoulder which the states has been there and doesn't appear worse to him. Patient is also altered while obtaining the history. He states that this started just this evening. Limited review of systems secondary to altered mental status. - Related Data Home Medications Medication Instructions Recorded Confirmed ALPRAZolam [Xanax] 0.25 mg PO BID PRN 12/02/22 12/02/22 Ascorbic Acid [Vitamin C] 500 mg PO DAILY 12/02/22 12/02/22 Aspirin 81 mg PO DAILY@1200 12/02/22 12/02/22 Atorvastatin [Lipitor] 20 mg PO Q48H 12/02/22 12/02/22 Baclofen 10 mg PO BID 12/02/22 12/02/22 Calcium Citrate/Vitamin D3 1 tab PO TID 12/02/22 12/02/22 [Calcium Cit 315-Vit D3 6.25 Mcg (250 Iu)] Ketoconazole 2% Cream [Nizoral 2%] 1 applic TOPICAL DAILY 12/02/22 12/02/22 Levothyroxine Sodium [Levoxyl] 88 mcg PO DAILY 12/02/22 12/02/22 Losartan Potassium [Cozaar] 100 mg PO HS 12/02/22 12/02/22 Magnesium 125 mg PO DAILY 12/02/22 12/02/22 Magnesium Hydroxide [Milk of 1,200 mg PO DAILY PRN 12/02/22 12/02/22 Magnesia] Nitroglycerin Sl Tabs [Nitrostat] 0.4 mg SUBLINGUAL Q5M PRN 12/02/22 12/02/22 Omeprazole 20 mg PO BID 12/02/22 12/02/22 Ondansetron [Zofran] 4 mg PO Q6HR PRN 12/02/22 12/02/22 Sertraline [Zoloft] 25 mg PO HS 12/02/22 12/02/22 Sucralfate [Sucralfate Oral Susp] 1 gm PO BID 12/02/22 12/02/22 atenoloL 100 mg PO DAILY 12/02/22 12/02/22 atenoloL [Tenormin] 50 mg PO HS 12/02/22 12/02/22 Previous Rx's Medication Instructions Recorded Cephalexin [Keflex] 500 mg PO Q8HR 7 Days #21 cap 12/03/22 Allergies Allergy/AdvReac Type Severity Reaction Status Date / Time codeine Allergy Unknown Verified 12/11/22 18:06 meperidine [From Demerol] Allergy Unknown Verified 12/11/22 18:06 Penicillins Allergy Anaphylaxis, Verified 12/11/22 18:06 swelling sulfamethoxazole Allergy Nausea & Verified 12/11/22 18:06 [From Bactrim] Vomiting trimethoprim [From Bactrim] Allergy Nausea & Verified 12/11/22 18:06 Vomiting Review of Systems ROS Statement: Those systems with pertinent positive or pertinent negative responses have been documented in the HPI. ROS Other: All systems not noted in ROS Statement are negative. Past Medical History Past Medical History: Cancer, Hypertension Additional Past Medical History / Comment(s): Breast cancer History of Any Multi-Drug Resistant Organisms: None Reported Past Surgical History: Joint Replacement, Orthopedic Surgery, Pacemaker Additional Past Surgical History / Comment(s): back surgery Past Anesthesia/Blood Transfusion Reactions: No Reported Reaction Type of Cardiac Device: Unknown Device Placement Date:: 2017 Past Psychological History: No Psychological Hx Reported Smoking Status: Never smoker Past Alcohol Use History: None Reported Past Drug Use History: None Reported General Exam Limitations: altered mental status General appearance: obtunded Head exam: Present: atraumatic, normocephalic, normal inspection Eye exam: Present: normal appearance, PERRL Neck exam: Present: normal inspection, full ROM Respiratory exam: Present: normal lung sounds bilaterally. Absent: respiratory distress, wheezes, rales, rhonchi, stridor Cardiovascular Exam: Present: regular rate, normal rhythm, normal heart sounds. Absent: systolic murmur, diastolic murmur, rubs, gallop, clicks Right Shoulder Exam: Present: erythema. Absent: tenderness, swelling Forearm Wrist exam: Present: normal inspection, full ROM. Absent: tenderness Vascular: Absent: vascular compromise Neurological exam: Present: altered Psychiatric exam: Present: agitated Skin exam: Present: erythema Course Vital Signs 12/11/22 12/11/22 12/11/22 18:02 22:21 23:04 Temperature 98.2 F Pulse Rate 76 77 76 Respiratory 18 18 18 Rate Blood Pressure 195/83 173/85 161/79 O2 Sat by Pulse 98 98 97 Oximetry EKG Findings - EKG Comments: EKG Findings:: Electronic atrial pacemaker ventricular rate 76. SC interval 213. QRS 80. QT 358. QTC 388. Medical Decision Making - Medical Decision Making Was pt. sent in by a medical professional or institution ([facility], [employer], urgent care, hospital, or snf...) When possible be specific @ -No Did you speak to anyone other than the patient for history (EMS, parent, family, police, friend...)? What history was obtained from this source @ -Spoke with at bedside Did you review nursing and triage notes (agree or disagree)? Why? @ -I reviewed and agree with nursing and triage notes Were old charts reviewed (outside hosp., previous admission, EMS record, old EKG, old radiological studies, urgent care reports/EKG's, snf records)? Report findings @ -Previous admission notes are reviewed Differential Diagnosis (chest pain, altered mental status, abdominal pain women, abdominal pain men, vaginal bleeding, weakness, fever, dyspnea, syncope, headache, dizziness, GI bleed, back pain, seizure, CVA, palpatations, mental health, musculoskeletal)? @ -MDM Differential Altered Mental Status: Hypoglycemia, DKA, hypercapnia, ETOH, overdose, CO poisoning, trauma, myxedema c jeanna, HTN encephalopathy, infection, encephalitis, psychosis, intercranial hemorrhage, hepatic encephalopathy, meningitis, CVA this is not meant to be an all-inclusive list EKG interpreted by me (3pts min.). @ -As above X-rays interpreted by me (1pt min.). @ -X-ray shows no acute process. CT interpreted by me (1pt min.). @ -CT shows no acute intracranial process. U/S interpreted by me (1pt. min.). @ -Ultrasound negative for DVT. What testing was considered but not performed or refused? (CT, X-rays, U/S, labs)? Why? @ -None What meds were considered but not given or refused? Why? @ -None Did you discuss the management of the patient with other professionals (professionals i.e. , PA, [employer], lab, RT, psych nurse, social insurance specialist, lawyer real estate, teacher, chief accounting officer, casework supervisor)? Give summary @ -My attending spoke with Dr. Owusu who accepted admission Was smoking cessation discussed for >3mins.? @ -No Was critical care preformed (if so, how long)? @ -No Were there social determinants of health that impacted care today? How? (Ho melessness, low income, unemployed, alcoholism, drug addiction, transportation, low edu. Level, literacy, decrease access to med. care, usp, rehab)? @ -No Was there de-escalation of care discussed even if they declined (Discuss DNR or withdrawal of care, Hospice)? DNR status @ -No What co-morbidities impacted this encounter? (DM, HTN, Smoking, COPD, CAD, Cancer, CVA, ARF, Chemo, Hep., AIDS, mental health diagnosis, sleep apnea, morbid obesity)? @ -None Was patient admitted / discharged? Hospital course, mention meds given and route, prescriptions, significant lab abnormalities, going to OR and other pertinent info. 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 Accompanied by her . On physical examination patient is altered. There is erythema to the chest and shoulder. WBC 20.8. Negative chest x-ray, venous Doppler study, and CT of the brain. Urine shows mild UTI. Patient is started on vancomycin and Rocephin. She'll be admitted with Dr. Cotter placed on consult. Follow-up with PCP. Report back to ER with any new or worsening symptoms. Discussed return parameters and answered all questions. Patient conveyed verbal understanding and agreed to the plan. I discussed this case in detail with my attending Dr. Lewis Undiagnosed new problem with uncertain prognosis? @ -No Drug Therapy requiring intensive monitoring for toxicity (Heparin, Nitro, Insulin, Cardizem)? @ -No Were any procedures done? @ -No Diagnosis/symptom? @ -Cellulitis, UTI, altered mental status Acute, or Chronic, or Acute on Chronic? @ -Acute Uncomplicated (without systemic symptoms) or Complicated (systemic symptoms)? @ -complicated Side effects of treatment? @ -No Exacerbation, Progression, or Severe Exacerbation? @ -No Poses a threat to life or bodily function? How? (Chest pain, [place], [place], pneumonia, PE, COPD, DKA, ARF, appy, cholecystitis, CVA, Diverticulitis, Homicidal, Suicidal, threat to staff... and all critical care pts) @ -Yes - Lab Data Result diagrams: 12/11/22 21:14 12/11/22 21:14 Lab Results 12/11/22 12/11/22 12/11/22 Range/Units 21:14 21:14 21:14 WBC 20.8 H (3.8-10.6) k/uL RBC 4.01 (3.80-5.40) m/uL Hgb 11.9 (11.4-16.0) gm/dL Hct 35.8 (34.0-46.0) % MCV 89.4 (80.0-100.0) fL MCH 29.7 (25.0-35.0) pg MCHC 33.3 (31.0-37.0) g/dL RDW 13.7 (11.5-15.5) % Plt Count 330 (150-450) k/uL MPV 6.8 Neutrophils % 93 % Lymphocytes % 4 % Monocytes % 2 % Eosinophils % 0 % Basophils % 0 % Neutrophils # 19.4 H (1.3-7.7) k/uL Lymphocytes # 0.8 L (1.0-4.8) k/uL Monocytes # 0.4 (0-1.0) k/uL Eosinophils # 0.1 (0-0.7) k/uL Basophils # 0.0 (0-0.2) k/uL PT 11.4 (10.0-12.5) sec INR 1.0 (<1.2) APTT 26.6 (22.0-30.0) sec Sodium (137-145) mmol/L Potassium (3.5-5.1) mmol/L Chloride (98-107) mmol/L Carbon Dioxide (22-30) mmol/L Anion Gap mmol/L BUN (7-17) mg/dL Creatinine (0.52-1.04) mg/dL Est GFR (CKD-EPI)AfAm (>60 ml/min/1.73 sqM) Est GFR (CKD-EPI)NonAf (>60 ml/min/1.73 sqM) Glucose (74-99) mg/dL Calcium (8.4-10.2) mg/dL Total Bilirubin (0.2-1.3) mg/dL AST (14-36) U/L ALT (4-34) U/L Alkaline Phosphatase (38-126) U/L Total Protein (6.3-8.2) g/dL Albumin (3.5-5.0) g/dL Urine Color Colorless Urine Appearance Clear (Clear) Urine pH 7.5 (5.0-8.0) Ur Specific [place] 1.011 (1.001-1.035) Urine Protein Negative (Negative) Urine Glucose (UA) Negative (Negative) Urine Ketones Negative (Negative) Urine Blood Small H (Negative) Urine Nitrite Negative (Negative) Urine Bilirubin Negative (Negative) Urine Urobilinogen <2.0 (<2.0) mg/dL Ur Leukocyte Esterase Negative (Negative) Urine RBC 19 H (0-5) /hpf Urine WBC 7 H (0-5) /hpf Ur Squamous Epith Cells 1 (0-4) /hpf Amorphous Sediment Rare H (None) /hpf Urine Mucus Rare H (None) /hpf 12/11/22 Range/Units 21:14 WBC (3.8-10.6) k/uL RBC (3.80-5.40) m/uL Hgb (11.4-16.0) gm/dL Hct (34.0-46.0) % MCV (80.0-100.0) fL MCH (25.0-35.0) pg MCHC (31.0-37.0) g/dL RDW (11.5-15.5) % Plt Count (150-450) k/uL MPV Neutrophils % % Lymphocytes % % Monocytes % % Eosinophils % % Basophils % % Neutrophils # (1.3-7.7) k/uL Lymphocytes # (1.0-4.8) k/uL Monocytes # (0-1.0) k/uL Eosinophils # (0-0.7) k/uL Basophils # (0-0.2) k/uL PT (10.0-12.5) sec INR (<1.2) APTT (22.0-30.0) sec Sodium 130 L (137-145) mmol/L Potassium 4.5 (3.5-5.1) mmol/L Chloride 94 L (98-107) mmol/L Carbon Dioxide 25 (22-30) mmol/L Anion Gap 11 mmol/L BUN 23 H (7-17) mg/dL Creatinine 0.72 (0.52-1.04) mg/dL Est GFR (CKD-EPI)AfAm 87 (>60 ml/min/1.73 sqM) Est GFR (CKD-EPI)NonAf 75 (>60 ml/min/1.73 sqM) Glucose 154 H (74-99) mg/dL Calcium 9.4 (8.4-10.2) mg/dL Total Bilirubin 1.3 (0.2-1.3) mg/dL AST 29 (14-36) U/L ALT 17 (4-34) U/L Alkaline Phosphatase 74 (38-126) U/L Total Protein 7.3 (6.3-8.2) g/dL Albumin 4.0 (3.5-5.0) g/dL Urine Color Urine Appearance (Clear) Urine pH (5.0-8.0) Ur Specific [place] (1.001-1.035) Urine Protein (Negative) Urine Glucose (UA) (Negative) Urine Ketones (Negative) Urine Blood (Negative) Urine Nitrite (Negative) Urine Bilirubin (Negative) Urine Urobilinogen (<2.0) mg/dL Ur Leukocyte Esterase (Negative) Urine RBC (0-5) /hpf Urine WBC (0-5) /hpf Ur Squamous Epith Cells (0-4) /hpf Amorphous Sediment (None) /hpf Urine Mucus (None) /hpf Disposition Clinical Impression: Cellulitis of right forearm, UTI (urinary tract infection), AMS (altered mental status) Disposition: ADMITTED IP TO THIS HOSP Condition: Fair Referrals: Chon Cotter MD [Primary Care Provider] - 1-2 days Time of Disposition: 00:04
[2022-12-11 21:49] LABS: Partial Thromboplastin Time 26.6 sec (22.0-30.0); Prothrombin Time 11.4 sec (10.0-12.5)
[2022-12-11 21:55] LABS: Chloride 94 mmol/L (98-107); Potassium 4.5 mmol/L (3.5-5.1)
[2022-12-11 21:58] LABS: ALT 17 U/L (4-34); AST 29 U/L (14-36); African American GFR (CKD) 87 (>60 ml/min/1.73 sqM); Alkaline Phosphatase 74 U/L (38-126); Anion Gap 11 mmol/L; Blood Urea Nitrogen 23 mg/dL (7-17); Calcium 9.4 mg/dL (8.4-10.2); Carbon Dioxide 25 mmol/L (22-30); Glucose 154 mg/dL (74-99); Non-African American GFR(CKD) 75 (>60 ml/min/1.73 sqM); Sodium 130 mmol/L (137-145); Total Bilirubin 1.3 mg/dL (0.2-1.3); Total Protein 7.3 g/dL (6.3-8.2)
--- NOTE | 2022-12-11 22:05 | CT ---
EXAMINATION TYPE: CT brain wo con DATE OF EXAM: 12/11/2022 COMPARISON: None INDICATION: AMS, uncooperative patient. Vulgar towards techs. DLP: 1143.4 mGycm, Automated exposure control for dose reduction was used. CONTRAST: None CT of the brain is performed utilizing 3 mm thick sections through the posterior fossa and 3 mm thick sections through the remaining calvarium. Study is performed within 24 hours of arrival to the hosp ital. No abnormal hyperdensity is present to suggest an acute intracranial hemorrhage. No mass lesion is evident. No acute infarcts are evident. Mild diminished density may be in the white matter likely on the basis of chronic white matter ischemic changes. Ventricles and sulci are prominent for the patient age. Paranasal sinuses and mastoid air cells within the [id number] are clear. Septal deviation is evide nt. IMPRESSION: 1. Atrophy with mild white matter ischemic type changes. 2. No acute intracranial process. Follow-up MRI can be performed as clinically indicated
--- NOTE | 2022-12-11 22:06 | XR ---
EXAMINATION TYPE: XR chest 1V portable DATE OF EXAM: 12/11/2022 COMPARISON: 12/01/2022 INDICATION: Altered mental status right arm pain TECHNIQUE: Single frontal view of the chest is obtained. Patient is rotated to the left. FINDINGS: The heart size is upper limits of normal. The pulmonary vasculature is normal. The lungs are clear. No focal suspicious consolidation is evident. Follow-up can be performed as clinically indicated. Pac emaker overlies left chest IMPRESSION: 1. No acute pulmonary process. 2. Mild cardiomegaly
[2022-12-11] MEDS ORDERED: VANCOMYCIN IV PER PHARMACY 1 EACH MISC MISCELLANE PRN (22:08)
[2022-12-11] MEDS ORDERED: cefTRIAXone IN SWFI 1,000 MG/10 ML SYRINGE IVP STA (22:09)
[2022-12-11] MEDS ORDERED: VANCOMYCIN 1,000 MG in SODIUM CHLORIDE 0.9% 250 ML IVPB STA (22:17)
[2022-12-11 23:45] LABS: Amorphous Sediment,Urine Rare /hpf; Appearance,Urine Clear (Clear); Bilirubin,Urine Negative (Negative); Blood,Urine Small (Negative); Color,Urine Colorless; Glucose,Urine (UA) Negative (Negative); Ketones,Urine Negative (Negative); Leukocyte Esterase,Urine Negative (Negative); Mucus,Urine Rare /hpf; Nitrite,Urine Negative (Negative); PH, Urine 7.5 (5.0-8.0); Protein,Urine Negative (Negative); RBC,Urine 19 /hpf (0-5); Specific Gravity,Urine 1.011 (1.001-1.035); Squamous Epithelial Cell,Urine 1 /hpf (0-4); Urobilinogen,Urine <2.0 mg/dL (<2.0); WBC,Urine 7 /hpf (0-5)
--- NOTE | 2022-12-11 23:48 | US ---
EXAM: US Duplex Right Upper Extremity Veins CLINICAL HISTORY: ITS.REASON US Reason: swelling TECHNIQUE: Real-time duplex ultrasound scan of the right upper extremity veins integrating B-mode two-dimensional vascular structure, Doppler spectral analysis, color flow Doppler imaging and compression. COMPARISON: No relevant prior studies available. FINDINGS: Deep veins: Unremarkable. No DVT in the internal jugular, subclavian, axillary, or brachial veins. The veins demonstrate normal color flow, are normally compressible, with normal phasic flow and/or augmentation response. Superficial veins: Basilic vein not visualized. No thrombus in the visualized basilic and cephalic veins. Soft tissues: No acute findings. IMPRESSION: No DVT in the RIGHT upper extremity.
[2022-12-12] MEDS ORDERED: NALOXONE 0.4 MG/ML 1 ML VIAL IV PRN (00:01)
[2022-12-12] MEDS ORDERED: ACETAMINOPHEN TAB 325 MG TAB PO PRN (00:01)
[2022-12-12] MEDS ORDERED: MORPHINE SULFATE 4 MG/ML SYRINGE IVP PRN (00:03)
[2022-12-12] MEDS: SODIUM CHLORIDE 0.9% 1,000 ML IV SCH ×2 (00:33→14:52)
[2022-12-12] MEDS ORDERED: ONDANSETRON 4 MG TAB PO PRN (10:17)
[2022-12-12] MEDS ORDERED: MAGNESIUM HYDROXIDE 2,400 MG/30 ML CUP PO PRN (10:17)
[2022-12-12] MEDS: ASCORBIC ACID 500 MG TAB PO SCH (11:18)
[2022-12-12] MEDS: MAGNESIUM OXIDE 400 MG TAB PO SCH (11:18)
[2022-12-12] MEDS: atenoloL 50 MG TAB PO SCH ×2 (11:18→20:32)
[2022-12-12] MEDS: BACLOFEN 10 MG TAB PO SCH ×2 (11:18→20:31)
[2022-12-12] MEDS: ASPIRIN 81 MG PO SCH (11:18)
[2022-12-12] MEDS: SUCRALFATE 1 GM TAB PO SCH ×2 (11:18→20:31)
[2022-12-12] MEDS: CALCIUM CARB-VIT D 500 MG-5 MCG TAB PO SCH ×2 (17:04→20:31)
[2022-12-12] MEDS: LOSARTAN 50 MG TAB PO SCH (20:31)
[2022-12-12] MEDS: ALPRAZolam 0.25 MG TAB PO PRN (20:31)
[2022-12-12] MEDS: SERTRALINE 25 MG TAB PO SCH (20:31)
[2022-12-12] MEDS ORDERED: ATORVASTATIN 20 MG TAB PO SCH (21:00)
--- NOTE | 2022-12-12 22:09 | P.CONS ---
History of Present Illness - Reason for Consult Consult date: 12/12/22 right upper extremity cellulitis Requesting physician: Dusty Owusu - Chief Complaint right arm swelling and redness x one day - History of Present Illness Patient is a 87-year-old female with a past medical history significant for right-sided breast cancer in this patient was status post radical mastectomy with lymphedema to the right upper extremity and history of recurrent cellulitis patient presenting to the ER last night for evaluation of right arm swelling and redness which has been extending to the right chest wall patient symptoms started the day of presentation to the hospital has been complaining of diffuse swelling redness and pain which is mostly dull aching to throbbing 5-6 out of 10 and no radiation currently no open wound or any drainage did have some chills on presentation to the hospital the patient was afebrile patient did have a white count of 20,000 with a left shift creatinine 0.72 liver exams are normal patient did have a chest x-ray negative for any consolidation venous Doppler was negative for DVT patient was started on vancomycin infectious disease was consulted for further management of antibiotic therapy Review of Systems Positive point and negatives has been mentioned in the HPI, complete review of systems was performed and all other systems are negative Past Medical History Past Medical History: Cancer, Hypertension Additional Past Medical History / Comment(s): Breast cancer, lymphedema, Lt arm dystonia History of Any Multi-Drug Resistant Organisms: None Reported Past Surgical History: Joint Replacement, Orthopedic Surgery, Pacemaker Additional Past Surgical History / Comment(s): back surgery, knee, hip surgery Past Anesthesia/Blood Transfusion Reactions: No Reported Reaction Type of Cardiac Device: Unknown Device Placement Date:: 2017 Past Psychological History: No Psychological Hx Reported Smoking Status: Never smoker Past Alcohol Use History: None Reported Past Drug Use History: None Reported Medications and Allergies Home Medications Medication Instructions Recorded Confirmed Type ALPRAZolam [Xanax] 0.25 mg PO BID PRN 12/02/22 12/12/22 History Ascorbic Acid [Vitamin C] 500 mg PO DAILY 12/02/22 12/12/22 History Aspirin 81 mg PO DAILY@1200 12/02/22 12/12/22 History Atorvastatin [Lipitor] 20 mg PO Q48H 12/02/22 12/12/22 History Baclofen 10 mg PO BID 12/02/22 12/12/22 History Calcium Citrate/Vitamin D3 1 tab PO TID 12/02/22 12/12/22 History [Calcium Cit 315-Vit D3 6.25 Mcg (250 Iu)] Ketoconazole 2% Cream [Nizoral 2%] 1 applic TOPICAL DAILY 12/02/22 12/12/22 History Levothyroxine Sodium [Levoxyl] 88 mcg PO DAILY 12/02/22 12/12/22 History Losartan Potassium [Cozaar] 100 mg PO HS 12/02/22 12/12/22 History Magnesium 125 mg PO DAILY 12/02/22 12/12/22 History Magnesium Hydroxide [Milk of 1,200 mg PO DAILY PRN 12/02/22 12/12/22 History Magnesia] Nitroglycerin Sl Tabs [Nitrostat] 0.4 mg SUBLINGUAL Q5M PRN 12/02/22 12/12/22 History Omeprazole 20 mg PO BID 12/02/22 12/12/22 History Ondansetron [Zofran] 4 mg PO Q6HR PRN 12/02/22 12/12/22 History Sertraline [Zoloft] 25 mg PO HS 12/02/22 12/12/22 History atenoloL 100 mg PO DAILY 12/02/22 12/12/22 History atenoloL [Tenormin] 50 mg PO HS 12/02/22 12/12/22 History Sucralfate [Carafate] 1 gm PO BID 12/12/22 12/12/22 History Cephalexin [Keflex] 500 mg PO Q8HR 10 Days #30 cap 12/14/22 Rx Ondansetron [Zofran] 4 mg PO Q8HR #30 tab 12/14/22 Rx Allergies Allergy/AdvReac Type Severity Reaction Status Date / Time codeine Allergy Unknown Verified 12/12/22 07:53 meperidine [From Demerol] Allergy Unknown Verified 12/12/22 07:53 Penicillins Allergy Anaphylaxis, Verified 12/12/22 07:53 swelling sulfamethoxazole AdvReac Nausea & Verified 12/12/22 07:53 [From Bactrim] Vomiting trimethoprim [From Bactrim] AdvReac Nausea & Verified 12/12/22 07:53 Vomiting Physical Exam Vitals: Vital Signs Temp Pulse Pulse Resp BP BP Pulse Ox 12/12/22 08:00 75 16 150/75 95 12/12/22 06:20 80 18 130/60 96 12/12/22 04:27 74 18 157/74 96 12/12/22 02:00 80 18 145/65 98 12/12/22 00:00 78 18 160/75 97 12/11/22 23:04 76 18 161/79 97 12/11/22 22:21 77 18 173/85 98 12/11/22 18:02 98.2 F 76 18 195/83 98 Intake and Output 12/11/22 12/12/22 12/12/22 22:59 06:59 14:59 Other: Weight 52.163 kg 52.163 kg GENERAL DESCRIPTION: elderly female lying in bed, no distress. No tachypnea or accessory muscle of respiration use. HEENT: Shows Pallor , no scleral icterus. Oral mucous membrane is dry. No pharyngeal erythema or thrush NECK: Trachea central, no thyromegaly. LUNGS: Unlabored breathing. Clear to auscultation anteriorly. No wheeze or crackle. HEART: S1, S2, regular rate and rhythm. No loud murmur ABDOMEN: Soft, no tenderness , guarding or rigidity, no organomegaly EXTREMITIES: right upper extremity with diffuse swelling and redness warm and tender to touch SKIN: No rash, no masses palpable. NEUROLOGICAL: The patient is awake, alert, oriented x3, mood and affect normal. Results CBC & Chem 7: 12/13/22 06:48 12/13/22 06:48 Labs: Abnormal Lab Results - Last 24 Hours (Table) 12/11/22 12/11/22 12/11/22 Range/Units 21:14 21:14 21:14 WBC 20.8 H (3.8-10.6) k/uL Neutrophils # 19.4 H (1.3-7.7) k/uL Lymphocytes # 0.8 L (1.0-4.8) k/uL Sodium 130 L (137-145) mmol/L Chloride 94 L (98-107) mmol/L BUN 23 H (7-17) mg/dL Glucose 154 H (74-99) mg/dL Urine Blood Small H (Negative) Urine RBC 19 H (0-5) /hpf Urine WBC 7 H (0-5) /hpf Amorphous Sediment Rare H (None) /hpf Urine Mucus Rare H (None) /hpf Assessment and Plan (1) Cellulitis of right forearm Current Visit: Yes Status: Acute Code(s): L03.113 - CELLULITIS OF RIGHT UPPER LIMB SNOMED Code(s): [id number] Plan: 1patient presented hospital with a right upper extremity pain swelling and redness in this patient who do have a history of lymphedema with diffuse swelling redness likely streptococcal cellulitis clinically doubt MRSA infection. 2vancomycin has been discontinued. 3cefazolin 2 g every 8 hours. 4marked the area of the redness. We will follow on clinical condition and cultures to further adjust medication if needed Thank you for this consultation we will follow the patient along with you Dictation was produced using [employer] dictation software. please excuse any gr ammatical, word or spelling errors. Time with Patient: Greater than 30
[2022-12-12] MEDS ORDERED: VANCOMYCIN 1,000 MG in SODIUM CHLORIDE 0.9% 250 ML IVPB SCH (23:00)
--- NOTE | 2022-12-13 05:39 | HP ---
HISTORY AND PHYSICAL HISTORY OF PRESENT ILLNESS: An 87-year-old white female, came in with right arm and chest redness and swelling. History of breast cancer, radiation, lymph nodes, discharged after treatment recently for multiple occasions of cellulitis, started Keflex a few days ago, more redness when she came into the hospital. HOME MEDICINES: Reviewed. REVIEW OF SYSTEMS: A 14-point review of systems otherwise negative. ALLERGIES: Codeine, meperidine, penicillin, Bactrim. PAST MEDICAL HISTORY: Cancer, breast cancer, hypertension. PAST SURGICAL HISTORY: Joint replacement, orthopedic surgery, pacemakers. FAMILY HISTORY: Reviewed. PHYSICAL EXAMINATION: VITAL SIGNS: Blood pressure is 195/83 to 161/79. CARDIOVASCULAR: S1, S2. LUNGS: Decreased breath sounds x4. INTEGUMENT: Shows redness down the right arm into the hand. PSYCH: Fair mood and affect. SKIN: Redness as mentioned above. IMAGING STUDIES: EKG, pacemaker. ASSESSMENT: Recurrent cellulitis, right arm. Erythema of the chest and shoulder. White blood cells 20,000. Urine shows mild UTI, started on vancomycin and Rocephin. Dr. Cotter on consult. Prognosis guarded. MMODL / IJN: [id number] /
[2022-12-13] MEDS: LEVOTHYROXINE 88 MCG TAB PO SCH (06:25)
[2022-12-13 07:45] LABS: Basophils % (A) 0 %; Eosinophils # (A) 0.2 k/uL (0-0.7); Eosinophils % (A) 2 %; HCT 33.2 % (34.0-46.0); HGB 10.9 gm/dL (11.4-16.0); Lymphocytes # (A) 1.9 k/uL (1.0-4.8); Lymphocytes % (A) 21 %; MCH 29.6 pg (25.0-35.0); MCHC 32.7 g/dL (31.0-37.0); MCV 90.4 fL (80.0-100.0); Mean Platelet Volume 7.6; Monocytes # (A) 0.6 k/uL (0-1.0); Monocytes % (A) 7 %; Neutrophils # (A) 6.1 k/uL (1.3-7.7); Neutrophils % (A) 68 %; Platelet Count 289 k/uL (150-450); RBC 3.67 m/uL (3.80-5.40); RDW 13.7 % (11.5-15.5); WBC 8.9 k/uL (3.8-10.6)
[2022-12-13 08:34] LABS: ALT 13 U/L (4-34); AST 28 U/L (14-36); African American GFR (CKD) >90 (>60 ml/min/1.73 sqM); Albumin 3.2 g/dL (3.5-5.0); Alkaline Phosphatase 62 U/L (38-126); Anion Gap 9 mmol/L; Blood Urea Nitrogen 13 mg/dL (7-17); Calcium 8.7 mg/dL (8.4-10.2); Carbon Dioxide 22 mmol/L (22-30); Chloride 98 mmol/L (98-107); Glucose 91 mg/dL (74-99); Non-African American GFR(CKD) 84 (>60 ml/min/1.73 sqM); Potassium 4.2 mmol/L (3.5-5.1); Sodium 129 mmol/L (137-145); Total Bilirubin 0.9 mg/dL (0.2-1.3); Total Protein 6.3 g/dL (6.3-8.2)
[2022-12-13] MEDS: SODIUM CHLORIDE 0.9% 1,000 ML IV SCH (08:52)
[2022-12-13] MEDS: MAGNESIUM OXIDE 400 MG TAB PO SCH (08:54)
[2022-12-13] MEDS: SUCRALFATE 1 GM TAB PO SCH ×2 (08:54→20:34)
[2022-12-13] MEDS: atenoloL 50 MG TAB PO SCH ×2 (08:54→20:34)
[2022-12-13] MEDS: BACLOFEN 10 MG TAB PO SCH ×2 (08:54→20:34)
[2022-12-13] MEDS: ASCORBIC ACID 500 MG TAB PO SCH (08:54)
[2022-12-13] MEDS: CALCIUM CARB-VIT D 500 MG-5 MCG TAB PO SCH ×3 (08:54→20:34)
[2022-12-13] MEDS: ASPIRIN 81 MG PO SCH (12:12)
[2022-12-13] MEDS: ALPRAZolam 0.25 MG TAB PO PRN ×2 (12:53→20:56)
[2022-12-13] MEDS ORDERED: hydrALAZINE HCL 20 MG/ML 1 ML VIAL IVP STA (13:15)
[2022-12-13] MEDS: LOSARTAN 50 MG TAB PO SCH (20:34)
[2022-12-13] MEDS: SERTRALINE 25 MG TAB PO SCH (20:56)
--- NOTE | 2022-12-13 23:31 | P.PN ---
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 On today's evaluation that is 12/13/2022, patient denies having any fever or any chills patient is breathing comfortably on room air right upper extremity redness slightly decreased currently open wound noted drainage no chest pain shortness of breath or cough no abdominal pain or diarrhea. wbc normalized to 8.9 and cultures so far negative Objective - Vital Signs Vital signs: Vital Signs Temp 98.3 F 12/12/22 20:00 Pulse 75 12/13/22 08:00 Resp 15 12/12/22 20:00 BP 210/93 12/13/22 13:14 Pulse Ox 96 12/12/22 20:00 FiO2 Intake & Output 12/12/22 12/13/22 12/13/22 18:59 06:59 18:59 Intake Total 1000 Balance 1000 Weight 52.163 kg Intake: Intake, IV Titration 1000 Amount Sodium Chloride 0.9% 1, 900 000 ml @ 75 mls/hr IV . [id number] [facility] Rx#:[id number] ceFAZolin 2 gm In Sodium 100 Chloride 0.9% 50 ml @ 100 mls/hr IVPB Q8HR [facility] Rx# :[id number] Other: Voiding Method Toilet # Voids 4 2 # Bowel Movements 1 - Exam GENERAL DESCRIPTION: Elderly female lying in bed in no distress RESPIRATORY SYSTEM: Unlabored breathing , decreased breath sounds at bases HEART: S1 S2 regular rate and rhythm ,no loud murmurs ABDOMEN: Soft , no tenderness EXTREMITIES: Right upper extremity swelling versus redness has decreased - Labs CBC & Chem 7: 12/13/22 06:48 12/13/22 06:48 Labs: Abnormal Lab Results - Last 24 Hours (Table) 12/13/22 12/13/22 Range/Units 06:48 06:48 RBC 3.67 L (3.80-5.40) m/uL Hgb 10.9 L (11.4-16.0) gm/dL Hct 33.2 L (34.0-46.0) % Sodium 129 L (137-145) mmol/L Albumin 3.2 L (3.5-5.0) g/dL Microbiology - Last 24 Hours (Table) 12/11/22 21:00 Blood Culture - Preliminary Blood 12/11/22 21:14 Blood Culture - Preliminary Blood Assessment and Plan (1) Cellulitis of right forearm Current Visit: Yes Status: Acute Code(s): L03.113 - CELLULITIS OF RIGHT UPPER LIMB SNOMED Code(s): 27565851885152798 (2) Allergy to multiple antibiotics Current Visit: No Status: Acute Code(s): Z88.1 - ALLERGY STATUS TO OTHER AN TIBIOTIC AGENTS SNOMED Code(s): 237666524 Plan: 1patient presented hospital with a right upper extremity pain swelling and redness in this patient who do have a history of lymphedema with diffuse swelling redness likely streptococcal cellulitis clinically doubt MRSA infection. 2patient seem to have shown some clinical improvement we will continue the patient on cefazolin however if continues to improve will be able to finish therapy with oral Keflex, questions ANSWERED Dictation was produced using [employer] software. please excuse any grammatical, word or spelling errors.
[2022-12-14] MEDS: LEVOTHYROXINE 88 MCG TAB PO SCH (06:09)
[2022-12-14 08:04] VITALS: RESP 16
[2022-12-14] MEDS: MAGNESIUM OXIDE 400 MG TAB PO SCH (09:07)
[2022-12-14] MEDS: SUCRALFATE 1 GM TAB PO SCH (09:07)
[2022-12-14] MEDS: CALCIUM CARB-VIT D 500 MG-5 MCG TAB PO SCH (09:08)
[2022-12-14] MEDS: BACLOFEN 10 MG TAB PO SCH (09:08)
[2022-12-14] MEDS: ASCORBIC ACID 500 MG TAB PO SCH (09:08)
[2022-12-14] MEDS: atenoloL 50 MG TAB PO SCH (09:08)
[2022-12-14] MEDS: ASPIRIN 81 MG PO SCH (12:22)
[2022-12-14 12:50] VITALS: BP 187/75; PULSE 84; TEMP 98
--- NOTE | 2022-12-14 13:34 | PN ---
PROGRESS NOTE SUBJECTIVE: This is an 87-year-old white female. She had right breast cancer status post radical mastectomy, lymphedema of the right upper extremity, recurrent cellulitis. She is admitted for IV antibiotics. Denies having fever or chills. White count is normalized to 8 9. Cultures negative. OBJECTIVE: VITAL SIGNS: Blood pressure is high at 210/93, pulse 75, respiratory rate 16 to 18, and temperature 98.3. GENERAL: Elderly female, in no acute distress. CARDIAC: S1, S2. EXTREMITIES: Right upper extremity shows swelling and redness has decreased. LABORATORY DATA: Hemoglobin is 10.9 sodium 129, potassium 4.2. ASSESSMENT: Cellulitis and lymphedema, status post breast cancer of the right arm. Hypertension acceleration if blood pressure comes down. We will be able to possibly discharge her pending how she does with the blood pressure. MMODL / IJN: [id number] /
--- NOTE | 2022-12-14 14:46 | P.PN ---
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 On today's evaluation that is 12/14/2022, patient remains to be afebrile, the patient is breathing comfortably on room air, the patient right upper extremity redness has resolved currently open wound noted drainage no chest pain shortness of breath or cough no abdominal pain or diarrhea. wbc normalized to 8.9as of yesterday and cultures so far negative Objective - Vital Signs Vital signs: Vital Signs Temp 98.6 F 12/14/22 07:16 Pulse 71 12/14/22 07:16 Resp 16 12/14/22 07:16 BP 156/74 12/14/22 07:16 Pulse Ox 94 L 12/14/22 07:16 FiO2 Intake & Output 12/13/22 12/14/22 12/14/22 18:59 06:59 18:59 Intake Total 50 Balance 50 Intake: Intake, IV Titration 50 Amount ceFAZolin 2 gm In Sodium 50 Chloride 0.9% 50 ml @ 100 mls/hr IVPB Q8HR [facility] Rx# :[id number] Other: Voiding Method Toilet Toilet # Voids 1 1 - Exam GENERAL DESCRIPTION: Elderly female lying in bed in no distress RESPIRATORY SYSTEM: Unlabored breathing , decreased breath sounds at bases HEART: S1 S2 regular rate and rhythm ,no loud murmurs ABDOMEN: Soft , no tenderness EXTREMITIES: Right upper extremity swelling versus redness has decreased - Labs CBC & Chem 7: 12/13/22 06:48 12/13/22 06:48 Labs: Microbiology - Last 24 Hours (Table) 12/11/22 21:00 Blood Culture - Preliminary Blood 12/11/22 21:14 Blood Culture - Preliminary Blood Assessment and Plan (1) Cellulitis of right forearm Current Visit: Yes Status: Acute Code(s): L03.113 - CELLULITIS OF RIGHT UPPER LIMB SNOMED Code(s): 73130554598061525 (2) Allergy to multiple antibiotics Current Visit: No Status: Acute Code(s): Z88.1 - ALLERGY STATUS TO OTHER ANTIBIOTIC AGENTS SNOMED Code(s): 749334919 Plan: 1patient presented hospital with a right upper extremity pain swelling and redness in this patient who do have a history of lymphedema with diffuse swelling redness likely streptococcal cellulitis clinically doubt MRSA infecti on. 2patient has shown clinical improvement with cefazolin , plan is to finish therapy with oral Keflex prescription has been sent to the pharmacy and close outpatient follow-up Dictation was produced using [employer] dictation software. please excuse any grammatical, word or spelling errors. Time with Patient: Less than 30
[2022-12-14] MEDS ORDERED: INFLUENZA VACC HIGH-DOSE (65+) 240 MCG/0.7 ML SYRINGE IM ONE (15:05)
== END 2022-12-14 16:59 | disposition home health service (06) | DRG 863 ==
LOC: EC 17:28 → 5NMEDONC 12-12 02:25 → 1SOBS 12-12 05:25 → 5NMEDONC 12-13 15:23
PROVIDERS: ADMIT Family Medicine; ATTEND Family Medicine
DX: T81.40XA Infection following a procedure, unspecified, initial encounter (principal); L03.313 Cellulitis of chest wall; L03.113 Cellulitis of right upper limb; N39.0 Urinary tract infection, site not specified; I10 Essential (primary) hypertension; Z79.82 Long term (current) use of aspirin; Z79.890 Hormone replacement therapy; Z79.899 Other long term (current) drug therapy; Z85.3 Personal history of malignant neoplasm of breast; Z92.3 Personal history of irradiation; Z88.1 Allergy status to other antibiotic agents; Z88.5 Allergy status to narcotic agent; Z88.2 Allergy status to sulfonamides; G24.9 Dystonia, unspecified; Z95.0 Presence of cardiac pacemaker; Z96.60 Presence of unspecified orthopedic joint implant
CPT/HCPCS: 36415; 70450; 71045; 80053; 81001; 85025; 85610; 85730; 87040; 90662; 93005; 96361; 96365; 96366; 96375; 99285